=== PATIENT | male | born 1980 | race Caucasian/White ===

== ENCOUNTER 2020-06-03 04:56 | Emergency (ER) | payer SELFPAY ==
--- NOTE | ~2020-06-03 | CT_ITS ---
EXAMINATION: CT BRAIN W/O DATE: 06/03/2020 05:34 INDICATION: Acute headache TECHNIQUE: Computed tomography (CT) of the head was performed without intravenous contrast. The dose- length product was 681.00 mGy-cm. The mA was adjusted according to patient size. Iterative reconstruc tion technique was employed. COMPARISON: No prior studies for comparison. FINDINGS: Normal brain parenchymal volume for age. Normal hernandez-white differentiation. No acute intrac ranial hemorrhage, infarction, mass or mass effect. No ventriculomegaly or midline shift. Midline sagittal images demonstrate a normal corpus callosum, c raniovertebral junction and sella turcica. Basilar cisterns are patent. Paranasal sinuses and mastoids are pneumatized. No depressed skull fractures. IMPRESSION: 1. No acute intracranial abnormality. Reviewed, dictated and finalized at location A.
[2020-06-03 04:56] VITALS: BP 139/89; PULSE 65; RESP 18; O2SAT 100
--- NOTE | 2020-06-03 05:15 | ED.HA ---
HPI - Headache General Chief Complaint: Headache Stated Complaint: headache Time Seen by Provider: 06/03/20 04:57 Source: patient Mode of arrival: ambulatory Limitations: no limitations History of Present Illness HPI Narrative: This patient is a 39 year old male with history of polysubstance abuse who presents for evaluation of severe right side headache. This patient reports he has had a headache that has progressively worsened over the past week. He describes his pain as tearing pain. He has trying taking aspirin, alcohol and marijuana for the pain. He has intermittent nausea. He also reports sweats and chills. He has been taking suboxone for 1 year but he ran out of it 2 days ago. He reports his headache is 4/10 Related Data Allergies Allergy/AdvReac Type Severity Reaction Status Date / Time No Known Allergies Allergy Verified 06/03/20 05:58 Review of Systems Review of Systems: All systems reviewed & are unremarkable except as noted in HPI and below Eyes: Eyes: Reports no additional eye complaints ENT: Denies dizziness, Denies epistaxis, Denies nasal congestion and Denies sore throat Cardiovascular: Cardiovascular: Denies chest pain Respiratory: Respiratory: Denies cough and Denies dyspnea Gastrointestinal: Gastrointestinal: Denies abdominal pain, Denies nausea and Denies vomiting Neurologic: Reports headache(s) PMFSH Past Medical History Medical History (Updated 06/04/20 @ 07:22 by Celina Castro MD) No significant medical problems Surgical History Surgical History (Updated 06/03/20 @ 05:22 by Celina Castro MD) No significant past surgical history Social History Social History (Updated 06/03/20 @ 05:23 by Celina Castro MD) Smoking status: Current every day smoker Alcohol intake: current Substance use: current Substance use type: crack/cocaine Exam Narrative: Exam Narrative: GENERAL: Well-appearing, well-nourished, and in no acute distress. HEAD: Normocephalic, atraumatic EYES: PERRLA and EOMI, conjunctiva clear without discharge EARS: TM's clear bilaterally without erythema or dullness NOSE: Nares clear, no rhinorrhea or epistaxis THROAT:Mucous membranes moist, Oropharynx normal without erythema, exudate, peritonsillar swelling or fluctuance NECK: Supple, without lymphadenopathy or mass RESPIRATORY: No respiratory distress, Airway patent, Respirations non-labored, Clear to auscultation without rales, rhonchi or wheeze HEART: Regular rate and rhythm. No murmur heard. Normal peripheral pulses. ABDOMEN: Soft, nontender, nondistended, normal active bowel sounds. No masses. No rebound or guarding, No organomegaly. EXTREMITIES: No edema, normal strength with full range of motion. SKIN: Warm, dry, normal color without rash NEURO: Alert and oriented x3. CN 2-12 grossly intact. No focal deficits. PSYCH: Normal mood and affect. Course Reevaluation(s) Reevaluation #1: IVF, reglan and benadryl ordered for patient's headache. He became upset with receiving IVF. PAtient signed out AMA after it was explained this is treatment for migraine headache. Date: 06/03/20 Time: 06:10 Vital Signs Vital signs: Vital Signs Pulse Rate 65 06/03/20 04:56 Respiratory Rate 18 06/03/20 04:56 Blood Pressure 139/89 06/03/20 04:56 Pulse Oximetry 100 06/03/20 04:56 Pulse Rate 81 06/03/20 06:05 Respiratory Rate 18 06/03/20 06:05 Blood Pressure 136/97 H 06/03/20 06:05 Pulse Oximetry 100 06/03/20 06:05 MDM - Headache Imaging Data Radiologist's impression: CT head- no acute disease Discharge Plan Discharge Clinical Impression: Headache Patient Disposition: Left Against Medical Advice Condition: Stable Interventions: Discharge Disposition Last Done: 06/03/20 06:10 IV Stop Time Documented Last Done: 06/03/20 06:10 Follow-up/Referrals: PHYSICIAN,ROUTER OPERATOR [Primary Care Provider] - Discharge Date/Time: 06/03/20 06:10
[2020-06-03] MEDS: LACTATED RINGERS 1,000 ML 999 ML IV CONT (05:58)
[2020-06-03] MEDS: diphenhydrAMINE HCl INJ 50 MG/ML VIAL 25 MG IV PUSH (05:59)
[2020-06-03] MEDS: METOCLOPRAMIDE HCL INJ 10 MG/2 ML VIAL IV PUSH (05:59)
--- NOTE | 2020-06-03 06:03 | PC.NURSE ---
Patient becoming more agitated with IV fluids I dont need hydrating . Dr Castro at bedside to speak with patient
[2020-06-03 06:05] VITALS: BP 136/97; PULSE 81; RESP 18; O2SAT 100
--- NOTE | 2020-06-03 06:11 | PC.NURSE ---
Patient signed out AMA-refusing further medical care. Was cussing and kicking stretcher stating I'm worse off than I was when I got here but reported to MD that pain was 4/10. Patient escorted to front ED entrance
== END 2020-06-03 06:10 | disposition left against medical advice (07) ==
LOC: ANHED 05:49
PROVIDERS: Emergency Provider General Practice
DX: R51 Headache (principal); F17.200 Nicotine dependence, unspecified, uncomplicated
CPT/HCPCS: 70450; 96374; 96375; 99284; J1200; J2765; J7120